=== PATIENT | female | born 1980 | race Caucasian/White ===

== ENCOUNTER 2018-07-29 13:08 | Outpatient (CLI) | payer BC ==
--- NOTE | 2018-07-29 14:49 | CT ---
CT ABDOMEN AND PELVIS WITHOUT CONTRAST: HISTORY: Hematuria and back pain. FINDINGS: Absence of oral and IV contrast reduces the sensitivity of the exam, particularly for evaluation of s olid organs involved. The lung bases are clear. No free air or free fluid is seen in the abdomen or pelvis. An IUD is pre sent within the uterus. No calcified gallstones are identified. No calculi are seen in the kidneys, ureters, or urinary bladder. No hydroureteronephrosis is seen on either side. A normal appearing appendix is noted. No acute osseous abnormalities are seen. IMPRESSION: No CT evidence of urinary tract calculi or obstruction. POS: [facility]
== END 2018-07-29 13:09 | disposition home or self-care (01) ==
LOC: SCSCT 13:08
PROVIDERS: ATTEND Family Medicine
DX: S39.012A Strain of muscle, fascia and tendon of lower back, initial encounter (principal); R30.0 Dysuria; R31.21 Asymptomatic microscopic hematuria
CPT/HCPCS: 74176

== ENCOUNTER 2022-05-23 09:17 | Outpatient (CLI) | payer BC | END 2022-05-23 09:18 | disposition home or self-care (01) | LOC: BICRAD 09:17 | PROVIDERS: ATTEND Chiropractor | DX: M54.2 Cervicalgia (principal); R51.9 Headache, unspecified | CPT/HCPCS: 72040 ==